=== PATIENT | male | born 1955 | race Caucasian/White ===

== ENCOUNTER → 2023-06-19 15:48 | Outpatient (REF) | payer OTHER, MEDICAID, SELFPAY ==
[2023-06-19 11:01] LABS: % Basophils 0.6 % (0-2); % Eosinophils 4.9 % (0-6); % Immature Granulocytes 0.2 % (0-0.5); % Lymphocytes 29.2 % (20.5-51.1); % Neutrophils 57.1 % (42.2-75.2); Absolute Eosinophils 0.3 10^3/uL (0-0.7); Absolute Lymphocytes 1.5 10^3/uL (1.2-3.4); Absolute Monocytes 0.4 10^3/uL (0.1-0.6); Hematocrit 40.8 % (39.0-52.0); Mean Corp Hgb Conc. 34.3 g/dL (33.0-37.0); Mean Corpuscular Volume 96.2 fL (80.0-94.0); Mean Platelet Volume 9.6 fL (7.4-10.4); Platelet Count 209 10^3/uL (130-400); Red Blood Cell Count 4.24 10^6/uL (4.70-6.10); Red Cell Dist. Width 12.7 % (11.5-14.5); White Blood Cell Count 5.3 10^3/uL (4.8-10.8)
[2023-06-19 13:40] LABS: Iron 215 ug/dl (49-181)
[2023-06-19 13:50] LABS: Percent Saturation 55 % (20-50); Total Iron Binding Capacity 384 ug/dl (261-462)
[2023-06-19 14:16] LABS: Ferritin 28.1 ng/ml (17.9-464.0)
== END ==
LOC: OIDL 15:48
PROVIDERS: ATTENDING PHYSICIAN Internal Medicine Hematology & Oncology
DX: E83.110 Hereditary hemochromatosis (principal)
CPT/HCPCS: 36415; 82728; 83540; 83550; 85025

== ENCOUNTER 2023-06-26 13:55 | Outpatient (RCR) | payer OTHER, MEDICAID, SELFPAY ==
[2023-06-26] MEDS: NSS 250 IV (14:59)
[2023-06-26 15:01] VITALS: BP 123/74
[2023-06-26 15:41] VITALS: BP 120/80
[2023-06-26 15:47] VITALS: BP 119/73
--- NOTE | 2023-06-27 08:45 | OIDSOC ---
Note reflects actual conversation 06/26/23. JORDAN met with the patient in the OID. Pt. expressed concern that he lost his Medicaid insurance. JORDAN verified coverage with D financial counselor and met with the patient to confirm status of coverage is
active. Provided education on his insurance coverage. Pt. has a combined Medicare/Medical assistance (or Medicaid) insurance plan through [facility] called a Special Needs plan (or SNP plan). Pt. does not have an outstanding
balance with but expressed that he paid oop [facility]. JORDAN educated patient that as a [employer] plan, he will have to use [facility] as his primary in network lab provider to decrease his OOP. After JORDAN relayed this info, patient recalled
that he had been told this when he called [facility] about the bill. Other psychosocial assessment. Pt. lives with his and 92 year old mother in [facility] in [facility]. His is the primary caregiver to his mother in law who has
dementia. JORDAN asked if mother in law was evaluated for help from [facility] office on aging and patient is unsure about this but asked that SW follow up with his Leanna Norwood [phone] by phone. Pt. is independent with ADLs. He drives
himself to and from treatment independently. 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 He pays oop for lidocaine patches but is aware that there is only coverage for these
patches for specific dx through Medicare and he does not qualify for coverage for these through insurance due to not having the right dx. JORDAN will follow up with the patient's re: caregiver support.
== END 2023-06-27 10:13 | disposition home or self-care (01) ==
LOC: OID 13:55
PROVIDERS: ATTENDING PHYSICIAN Internal Medicine Hematology & Oncology; FAMILY PHYSICIAN Nurse Practitioner Adult Health
DX: E83.110 Hereditary hemochromatosis (principal)
CPT/HCPCS: 96360; 99195

== ENCOUNTER → 2023-09-03 10:33 | Outpatient (REF) | payer MEDICAID, MEDICARE, SELFPAY ==
[2023-09-03 11:02] LABS: % Basophils 0.8 % (0-2); % Lymphocytes 30.7 % (20.5-51.1); % Monocytes 8.4 % (1.7-9.3); % Neutrophils 52.1 % (42.2-75.2); Absolute Eosinophils 0.4 10^3/uL (0-0.7); Absolute Lymphocytes 1.5 10^3/uL (1.2-3.4); Absolute Monocytes 0.4 10^3/uL (0.1-0.6); Absolute Neutrophils 2.5 10^3/uL (1.4-6.5); Hematocrit 37.4 % (39.0-52.0); Hemoglobin 12.4 g/dL (13.0-18.0); Mean Corp Hgb Conc. 33.2 g/dL (33.0-37.0); Mean Corpuscular Hgb 31.2 pg (27.0-31.0); Mean Corpuscular Volume 94.2 fL (80.0-94.0); Mean Platelet Volume 9.7 fL (7.4-10.4); Platelet Count 244 10^3/uL (130-400); Red Blood Cell Count 3.97 10^6/uL (4.70-6.10); Red Cell Dist. Width 12.3 % (11.5-14.5); White Blood Cell Count 4.8 10^3/uL (4.8-10.8)
[2023-09-03 12:16] LABS: Iron 101 ug/dl (49-181)
[2023-09-03 12:25] LABS: Percent Saturation 23 % (20-50); Total Iron Binding Capacity 422 ug/dl (261-462)
[2023-09-03 12:52] LABS: Ferritin 12.6 ng/ml (17.9-464.0)
== END ==
LOC: OIDL 10:33
PROVIDERS: ATTENDING PHYSICIAN Internal Medicine Hematology & Oncology; FAMILY PHYSICIAN Nurse Practitioner Adult Health
DX: E83.110 Hereditary hemochromatosis (principal)
CPT/HCPCS: 36415; 82728; 83540; 83550; 85025

== ENCOUNTER → 2023-11-12 10:05 | Outpatient (REF) | payer MEDICARE, SELFPAY ==
[2023-11-12 10:13] LABS: % Basophils 0.5 % (0-2); % Eosinophils 4.3 % (0-6); % Immature Granulocytes 0.2 % (0-0.5); % Lymphocytes 27.4 % (20.5-51.1); % Monocytes 7.4 % (1.7-9.3); % Neutrophils 60.2 % (42.2-75.2); Absolute Eosinophils 0.3 10^3/uL (0-0.7); Absolute Lymphocytes 1.7 10^3/uL (1.2-3.4); Absolute Monocytes 0.5 10^3/uL (0.1-0.6); Absolute Neutrophils 3.7 10^3/uL (1.4-6.5); Hemoglobin 12.6 g/dL (13.0-18.0); Mean Corp Hgb Conc. 33.2 g/dL (33.0-37.0); Mean Corpuscular Hgb 30.3 pg (27.0-31.0); Mean Corpuscular Volume 91.3 fL (80.0-94.0); Mean Platelet Volume 9.8 fL (7.4-10.4); Platelet Count 248 10^3/uL (130-400); Red Blood Cell Count 4.16 10^6/uL (4.70-6.10); Red Cell Dist. Width 13.7 % (11.5-14.5); White Blood Cell Count 6.1 10^3/uL (4.8-10.8)
[2023-11-12 11:21] LABS: Iron 75 ug/dl (49-181)
[2023-11-12 11:30] LABS: Percent Saturation 18 % (20-50); Total Iron Binding Capacity 400 ug/dl (261-462)
[2023-11-12 11:56] LABS: Ferritin 13.1 ng/ml (17.9-464.0)
== END ==
LOC: OIDL 10:05
PROVIDERS: ATTENDING PHYSICIAN Internal Medicine Hematology & Oncology; FAMILY PHYSICIAN Family Medicine
DX: E83.110 Hereditary hemochromatosis (principal)
CPT/HCPCS: 36415; 82728; 83540; 83550; 85025